=== PATIENT | male | born 1970 | race Caucasian/White ===

== ENCOUNTER 2023-03-30 07:26 | Emergency (ER) | payer BC ==
[~2023-03-30] VITALS: Ht 175.3 cm; Wt 100.0 kg
[2023-03-30 07:43] VITALS: TEMP 99.8
[2023-03-30 09:19] LABS: BASOPHILS # (AUTO) 0.1 X10'3 (0-0.2); BASOPHILS % (AUTO) 1.5 % (0-1); EOSINOPHILS # (AUTO) 1.1 X10'3 (0-0.9); EOSINOPHILS % (AUTO) 11.5 % (0-6); HEMATOCRIT 41.7 % (42.0-52.0); HEMOGLOBIN 13.8 g/dl (14.0-17.9); LYMPHOCYTES # (AUTO) 1.3 X10'3 (1.1-4.8); LYMPHOCYTES % (AUTO) 13.5 % (21-51); MEAN CORPUSCULAR HEMOGLOBIN 30.2 PG (27.0-31.0); MEAN CORPUSCULAR VOLUME 91.6 FL (78-98); MEAN PLATELET VOLUME 10.6 FL (7.4-10.4); MONOCYTES # (AUTO) 1.1 X10'3 (0-0.9); MONOCYTES % (AUTO) 11.1 % (2-12); NEUTROPHILS # (AUTO) 6.2 X10'3 (1.8-7.7); NEUTROPHILS % (AUTO) 62.4 % (42-75); PLATELET COUNT 224 X10'3 (140-440); RED BLOOD COUNT 4.55 X10'6 (4.70-6.10); RED CELL DISTRIBUTION WIDTH 12.8 % (11.5-14.5); WHITE BLOOD COUNT 9.9 X10'3 (4.5-11.0)
[2023-03-30 09:39] LABS: ANION GAP 10 (8-16); BILIRUBIN,TOTAL 0.4 MG/DL (0.1-1.0); BLOOD UREA NITROGEN 6 MG/DL (7-18); BUN/CREATININE RATIO 5.6 (10.0-20.0); CALCIUM 9.3 MG/DL (8.5-10.1); CHLORIDE 102 MMOL/L (99-107); CREATININE 1.08 MG/DL (0.60-1.10); GLUCOSE 113 MG/DL (70-104); POTASSIUM 3.6 MMOL/L (3.5-5.1); SODIUM 137 MMOL/L (135-145); TOTAL CARBON DIOXIDE 24.9 MMOL/L (24-32); TOTAL PROTEIN 7.3 G/DL (6.4-8.2); eCRCL 78 ML/MIN; eGFR 71 ML/MIN
[2023-03-30 09:40] LABS: ALANINE AMINOTRANSFERASE 46 U/L (12-78); ALBUMIN 3.6 G/DL (3.4-5.0); ALKALINE PHOSPHATASE 49 IU/L (46-116); ASPARTATE AMINO TRANSFERASE 35 U/L (10-37)
[2023-03-30] MEDS ORDERED: ringers solution, lacted 1,000 ML IV ONE (10:15)
[2023-03-30 10:35] LABS: BILIRUBIN,URINE NEGATIVE (Neg); CLARITY,URINE SLIGHTLY CLOUDY (Clear); COLOR,URINE YELLOW (Yellow); GLUCOSE, URINE NEGATIVE (Neg); KETONES,URINE NEGATIVE (Neg); LEUKOCYTE ESTERASE ,URINE NEGATIVE (Neg); NITRITES, URINE NEGATIVE (Neg); OCCULT BLOOD,URINE NEGATIVE (Neg); PH,URINE 6.5 (4.8-8.0); PROTEIN,URINE TRACE mg/dl (Neg); UROBILINOGEN,URINE 0.2 E.U/dL (0.2-1.0)
[2023-03-30 10:43] LABS: UA COLLECTION TYPE CLN CATCH MIDSTREAM
[2023-03-30] MEDS ORDERED: iohexol 300mg/ml 100ml inj. ONE (10:49)
[2023-03-30 11:07] LABS: FINE GRANULAR CAST 0-3 /LPF (NEGATIVE)
[2023-03-30 11:08] LABS: SQUAMOUS EPITHELIAL CELL,UR FEW /LPF (FEW)
[2023-03-30 11:14] LABS: RBC,URINE 0-2 /HPF (0-2)
[2023-03-30 11:15] LABS: BACTERIA,URINE FEW /HPF (Neg)
[2023-03-30 11:16] LABS: MUCUS STRANDS FEW /LPF (Neg)
[2023-03-30] MEDS ORDERED: CIPR-259 PO (13:13)
[2023-03-30 13:30] VITALS: BP 132/78; PULSE 98; RESP 16; O2SAT 96
== END 2023-03-30 13:42 | disposition home or self-care (01) ==
LOC: ER 07:27
DX: N30.80 Other cystitis without hematuria (principal); Z20.822 Contact with and (suspected) exposure to COVID-19; G89.29 Other chronic pain; M54.9 Dorsalgia, unspecified; Z79.899 Other long term (current) drug therapy
CPT/HCPCS: 36415; 70450; 71045; 71100; 74177; 80053; 81001; 83605; 84145; 85025; 87040; 87088; 87502; 87503; 87811; 96360; 99285; J3490; J7120; Q9967

== ENCOUNTER 2024-12-01 10:48 | Emergency (ER) | payer BC ==
[~2024-12-01] VITALS: Ht 175.3 cm; Wt 96.2 kg
[2024-12-01 10:55] VITALS: TEMP 98.5
[2024-12-01 12:25] LABS: LEUKOCYTE ESTERASE ,URINE TRACE (Neg); NITRITES, URINE NEGATIVE (Neg); OCCULT BLOOD,URINE TRACE-INTACT (Neg)
[2024-12-01 12:28] LABS: MEAN PLATELET VOLUME 10.5 FL (7.4-10.4); RED CELL DISTRIBUTION WIDTH 13.7 % (11.5-14.5)
[2024-12-01 12:32] LABS: SQUAMOUS EPITHELIAL CELL,UR FEW /LPF (FEW); UA COLLECTION TYPE VOIDED
[2024-12-01 12:33] LABS: MUCUS STRANDS NONE SEEN /LPF (Neg)
[2024-12-01 12:37] LABS: CREATININE 0.96 MG/DL (0.60-1.10); TOTAL CARBON DIOXIDE 29.4 MMOL/L (24-32); eCRCL 87 ML/MIN; eGFR 81 ML/MIN
[2024-12-01] MEDS ORDERED: iohexol 300mg/ml 100ml inj. ONE (13:06)
--- NOTE | 2024-12-01 13:41 | Physician Documentation ---
History of Present Illness ~ Chief Complaint: Back Pain Stated Complaint: BACK PAIN Time Seen by MD: 11:08 Primary Medical Doctor: JEFFERSON Johnson Source: patient Mode of Arrival: POV Exam Limitations: no limitations HPI Patient with a history of chronic back issues. He states however over the past week he has had some difficulty pushing urine out and he has also felt constipated. At times he has had some back pain with a little radiculopathy going down the right leg but today he is pain-free. His doctor has ordered an MRI of his back but he has been reading online that this could be an emergency so he is concerned. No fever or injury. Medication Reconciliation Allergies: Coded Allergies: No Known Allergies (Unverified , 03/30/23) Scheduled Tamsulosin Hcl* (Flomax*), 0.4 MG PO DAILY Past Medical History Past Medical History: Chronic Pain, Chronic Back Pain Past Surgical History: noncontributory Drug Use: none Lives In: Home Review of Systems All Other Systems at this time: Reviewed and Negative Physical Exam Physical Exam Vital Signs: Temperature: 98.5, Source: Temporal, Heart Rate: 56, Respiratory Rate: 15, BP: 125/73, Pulse Oximetry: 99, Weight: 96.200 Oxygen Flow Rate: 0 General Appearance: alert Neck: non-tender, full range of motion Respiratory: no respiratory distress Chest: no accessory muscle use Cardiovascular: regular rate, rhythm, no edema BacK: normal inspection, no CVA tenderness, no vertebral tenderness Extremities: no evidence of injury, normal range of motion Sensory/Motor: sensation grossly intact Neurologic: oriented x4 Psychiatric: normal mood/affect Skin: normal color, warm/dry Progress Results/Orders Results/Orders Orders - SHANEL CARY MD Cult Urine + [place] [facility] (12/01/24 12:33) Ct Abdomen Pelvis (12/01/24 12:53) Completed Orders - SHANEL CARY MD Cbc/Diff (12/01/24 11:34) BMP (12/01/24 11:33) Ua W/Microscopic, Cult If Ind (12/01/24 12:00) Ct Abdomen Pelvis (12/01/24 12:53) Iohexol 300mg/Ml 100ml Inj. (Omnipaque-3 (12/01/24 13:06) Tamsulosin Capsule (Flomax Capsule) (12/01/24 21:00) Vital Signs 12/01/24 12/01/24 12/01/24 12/01/24 10:55 11:06 11:36 13:16 Temp 98.5 Pulse 60 55 56 Resp 16 18 15 15 B/P (MAP) 132/86 115/72 (86) 125/73 (90) Pulse Ox 98 99 99 O2 Flow Rate 0 12/01/24 15:31 Pulse 52 Resp 14 B/P (MAP) 137/93 (108) Pulse Ox 99 Laboratory Tests Test 12/01/24 11:55 12/01/24 12:00 White Blood Count 8.9 Red Blood Count 4.97 Hemoglobin 15.3 Hematocrit 45.4 Mean Corpuscular Volume 91.4 Mean Corpuscular Hemoglobin 30.8 Mean Corpuscular Hemoglobin Concent 33.8 Red Cell Distribution Width 13.7 Platelet Count 236 Mean Platelet Volume 10.5 H Neutrophils (%) (Auto) 51.6 Lymphocytes (%) (Auto) 32.3 Monocytes (%) (Auto) 8.8 Eosinophils (%) (Auto) 5.9 Basophils (%) (Auto) 1.4 H Neutrophils # (Auto) 4.6 Lymphocytes # (Auto) 2.9 Monocytes # (Auto) 0.8 Eosinophils # (Auto) 0.5 Basophils # (Auto) 0.1 CBC Comment Sodium Level 139 Potassium Level 4.0 Chloride Level 102 Carbon Dioxide Level 29.4 Anion Gap 8 Blood Urea Nitrogen 10 Creatinine 0.96 Estimated GFR/1.73 m2 81 BUN/Creatinine Ratio 10.4 Glucose Level 87 Calcium Level 8.8 Albumin 4.2 Chemistry Comments Urine Specimen Description Voided Urine Color Yellow Urine Clarity Clear Urine pH 6.0 Urine Specific [place] 1.015 Urine Protein Negative Urine Glucose (UA) Negative Urine Ketones Negative Urine Occult Blood Trace-intact Urine Nitrite Negative Urine Bilirubin Negative Urine Urobilinogen 0.2 Urine Leukocyte Esterase Trace H Urine RBC 10-20 Urine WBC 5-10 H Urine Squamous Epithelial Cells Few Urine Bacteria Few Urine Mucus None seen Urine Culture Indicated Indicated Volume Urine Centrifuged 10 ml Urine Comment Microbiology Date/Time Source Procedure Growth Status 12/01/24 12:33 Urine Voided Urine Culture - Preliminary Culture received. Resulted Medical Decision Making Differential Diagnosis Patient in with constipation and BPH on CT scan. I discussed with the patient that I am not concerned for cauda equina syndrome at this time. His symptoms do not match that. However he if he worsens he is to return to the ER prior to follow up with his PCP. I am starting him on Flomax and giving him instructions for constipation. Discharged home in good condition. Labs unremarkable. His PCP is still order in the MRI of his low back which I recommended that he continue with. Departure Disposition: HOME / SELF CARE / HOMELESS Impression: Primary Impression: BPH (benign prostatic hyperplasia) Qualified Codes: N40.1 - Benign prostatic hyperplasia with lower urinary tract symptoms Additional Impression: Constipation Qualified Codes: K59.00 - Constipation, unspecified Condition: Stable Discharge Instructions: Benign Prostatic Hyperplasia, Constipation, Adult, [id number] Referrals: NO PRIMARY CARE PROVIDER (PCP) Prescriptions Tamsulosin Hcl* (Flomax*) 0.4 Mg Cap.sr.24h 0.4 MG PO DAILY, #30 CAP Prov: SHANEL CARY MD 12/01/24 Education Educated: Patient Educated regarding: diagnosis, treatment, prognosis, need for follow up Signature Scribe Signature: No scribe used Attestation: No scribe used SHANEL CARY MD Dec 01, 2024 13:41
--- NOTE | 2024-12-01 15:01 | RADIOLOGY REPORT ---
EXAM: CT CT ABDOMEN PELVIS W/ IV CONTRAST HISTORY: low back pain, difficulty urinating, constipation COMPARISON: CT CT ABDOMEN PELVIS on DOS: 03/30/23 TECHNIQUE: Helical CT images of the abdomen and pelvis were performed with 100 mL Omnipaque 300 IV co ntrast. Sagittal and coronal reformatted images were obtained. This CT exam was performed using 1 or more of the following dose reduction techniques: Automated exposure control, adjustment of the mA and /or kv according to patient size, or the use of iterative reconstruction techniques. Radiation Dose Information: CT Dose: CTDI volume is 27.25 mGy. Dose-length product is 1464.17 mGy*cm FINDINGS: CT abdomen: The lung bases are clear. The heart is not enlarged. There are multiple hepatic simple cy sts. There are bilateral nonobstructing renal calculi, larger and more numerous on the right. There are multiple right renal parapelvic simple cysts. The spleen, gallbladder, pancreas, and adrenal gla nds are unremarkable. No abdominal aortic aneurysm or dissection. CT pelvis: No abnormal bowel dilatation, free air, or free fluid. There is fecal retention in the col on. The prostate is moderately enlarged. The appendix and urinary bladder are unremarkable. There is mild thoracolumbar dextroscoliosis. There is moderate to severe lower lumbar degenerative disc diseas e. There is sacroiliac degenerative changes, greater on the right. IMPRESSION: 1. Bilateral nonobstructing nephrolithiasis. 2. Fecal retention in the colon suggestive of constipation. 3. Moderate prostatic enlargement. 4. Degenerative changes of the spine and sacroiliac joints. 5. No evidence of bowel obstruction, acute appendicitis, or other acute process in the abdomen or pel vis.
[2024-12-01 15:31] VITALS: BP 137/93; PULSE 52; RESP 14; O2SAT 99
[2024-12-01] MEDS ORDERED: TAMS-55 PO (15:46)
== END 2024-12-01 16:31 | disposition home or self-care (01) ==
LOC: ER 10:48
DX: N40.1 Benign prostatic hyperplasia with lower urinary tract symptoms (principal); K59.00 Constipation, unspecified; G89.29 Other chronic pain; Z79.899 Other long term (current) drug therapy
CPT/HCPCS: 36415; 74177; 80048; 81001; 85025; 87088; 99285; Q9967